=== PATIENT | male | born 1960 | race Caucasian/White ===

== ENCOUNTER → 2019-12-20 | Outpatient (CLI) | payer SELFPAY ==
[2013-08-19 10:13] VITALS: BP 141/80
[~2019-12-20] MED LIST: BACTRIM DS 8001 TAB PO; CEPHALEXIN500 M1 PO; GOOD NEIGHBOR500 M2 PO; IBUPROFEN200 M1 PO; LORTAB 5/500 501 TAB PO; NO HOME MEDICATIONS; NORCO 325 MG-51 TA1 PO; NORCO 325 MG-51 TAB PO
== END ==
LOC: LAB 08:08
DX: R05 Cough (principal); R53.83 Other fatigue; R06.02 Shortness of breath; Z20.828 Contact with and (suspected) exposure to other viral communicable diseases

== ENCOUNTER 2021-09-18 13:14 | Emergency (ER) | payer SELFPAY ==
[~2021-09-18] VITALS: Ht 175.3 cm; Wt 81.8 kg
[2021-09-18 14:16] VITALS: BP 145/78
== END 2021-09-18 15:20 | disposition home or self-care (01) ==
LOC: ED 13:14
DX: M25.512 Pain in left shoulder (principal); F17.200 Nicotine dependence, unspecified, uncomplicated; Z87.828 Personal history of other (healed) physical injury and trauma

== ENCOUNTER 2022-06-13 04:04 | Emergency (ER) | payer SELFPAY ==
[~2022-06-13] VITALS: Ht 175.3 cm; Wt 70.0 kg
[~2022-06-13 04:04] MED LIST changes: +NORCO 325 MG-7.1 TA1 PO
[2022-06-13 04:06] VITALS: BP 112/76
[2022-06-13] MEDS ORDERED: KETOROLAC10 MG PO (10:04)
== END 2022-06-13 05:24 | disposition home or self-care (01) ==
LOC: ED 04:04
DX: M25.512 Pain in left shoulder (principal); Z87.81 Personal history of (healed) traumatic fracture; W06.XXXA Fall from bed, initial encounter

== ENCOUNTER 2022-06-13 08:38 | Emergency (ER) | payer SELFPAY ==
[~2022-06-13] VITALS: Ht 175.3 cm; Wt 70.0 kg
[2022-06-13 09:28] LABS: BASO # 0.02 K/mm3 (0.02-0.10); EOS # 0.03 K/mm3 (0.04-0.40); EOS % 0.8 % (0.0-4.0); HEMATOCRIT 38.6 % (42.0-52.0); LYMPH# 0.82 K/mm3 (1.50-4.00); MEAN CELL VOLUME 97 fl (78-100); MEAN CORPUSCULAR HEMOGLOBIN 33 pg (27-31); MEAN CORPUSCULAR HGB CONC 34 g/dL (33-37); MEAN PLATELET VOLUME 9.4 fl (7.4-10.4); MONO # 0.52 K/mm3 (0.20-0.80); NEU # 2.34 K/mm3 (1.40-6.50); PLATELET COUNT 263 K/mm3 (130-400); RED BLOOD COUNT 3.97 M/mm3 (4.20-5.60); WHITE BLOOD COUNT 3.7 K/mm3 (4.8-10.8)
[2022-06-13 09:32] LABS: ALBUMIN 3.9 g/dL (3.5-5.0); POTASSIUM 3.8 mmol/L (3.5-5.1); SODIUM 132 mmol/L (136-145)
[2022-06-13 09:34] LABS: CALCIUM 8.9 mg/dL (8.3-10.5)
[2022-06-13 09:35] LABS: GLUCOSE 124 mg/dL (75-110); TOTAL PROTEIN 8.2 g/dL (6.4-8.3)
[2022-06-13 09:36] LABS: CARBON DIOXIDE 20 mmol/L (22-29)
[2022-06-13 09:37] LABS: TOTAL BILIRUBIN 0.5 mg/dL (0.2-1.2)
[2022-06-13 09:40] LABS: AST-SGOT 105 U/L (5-34)
[2022-06-13 09:41] LABS: ALT/SGPT 159 U/L (0-55)
[2022-06-13 09:59] LABS: TROPONIN-I < 0.030 ng/mL (<0.030)
[2022-06-13] MEDS ORDERED: KETOROLAC10 MG PO (10:04)
[2022-06-13 10:23] VITALS: BP 134/84
== END 2022-06-13 10:26 | disposition home or self-care (01) ==
LOC: ED 08:38
PROVIDERS: Family Medicine
DX: M25.511 Pain in right shoulder (principal); M25.512 Pain in left shoulder; W18.30XA Fall on same level, unspecified, initial encounter
CPT/HCPCS: J1885; J3360